=== PATIENT | male | born 1930 | race Caucasian/White ===

== ENCOUNTER 2017-02-06 06:18 | Emergency (ER) | payer MEDICARE, OTHER ==
[~2017-02-06 06:18] MED LIST: ATENOLOL100 MG PO; BENAZEPRIL HCL20 MG PO; BENAZEPRIL HCL40 MG PO; CATAPRES 0.2MG0.2 MG TOP; CLONIDINE 0.1M0.1 MG TOP; COLACE100 MG PO; FEOSOL325 MG PO; FOLIC ACID1 MG PO; GLIPIZIDE10 MG PO; GLUCOPHAGE500 MG PO; GLUCOTROL XL5 MG PO; HYDRALAZINE 10M10 MG PO; LASIX40 MG PO; LEVAQUIN500 MG PO; LEVOTHYROXINE175 MCG PO; LIPITOR40 MG PO; LOPRESSOR50 MG PO; MIRALAX17 GM PO; MYLICON80 MG PO; NITROGLYCERIN1 EAC1 TD; NORVASC10 MG PO; NORVASC5 MG PO; PATANOL5 ML OU; PREVACID30 M1 PO; PROTONIX40 MG PO; SIMVASTATIN20 MG PO; SYNTHROID PO; TYLENOL #31 EACH PO; ULTRAM50 MG PO
[2017-02-06 07:32] LABS: BASOPHIL 0.3 % (0-2); EOSINOPHIL 2.7 % (0-7); HCT 31.4 % (42.0-52.0); HGB 9.9 g/dl (13.2-18.0); LYMPHOCYTE 14.5 % (15-48); MCH 24.3 pg (25.0-31.0); MCHC 31.5 g/dL (32.0-36.0); MONOCYTE 7.3 % (0-12); MPV 10.5 fL (6.0-9.5); NEUTROPHIL 75.2 % (41-80); PLT 376 K/uL (150-400); RBC 4.08 M/uL (4.70-6.00); RDW 17.4 % (11.5-14.0); WBC 10.7 K/uL (4.0-10.5)
[2017-02-06 07:39] LABS: INR 1.07 (0.9-1.2); PROTHROMBIN TIME 13.5 SECONDS (11.7-14.0); PTT 27.9 SECONDS (23.2-31.4)
[2017-02-06 07:45] LABS: ALBUMIN 3.9 g/dL (3.4-4.8); BILIRUBIN - TOTAL 0.2 mg/dL (0.1-1.0); CREATININE 1.1 mg/dL (0.7-1.2); GLOBULIN (CALCULATION) 3.2 g/dL (2.2-4.2); POTASSIUM 3.6 mmol/L (3.5-5.1); TOTAL PROTEIN 7.1 g/dL (6.4-8.3)
[2017-02-06 10:30] LABS: BILIRUBIN NEGATIVE (NEGATIVE); BLOOD NEGATIVE Ery/uL (NEGATIVE); CLARITY CLEAR (CLEAR); COLOR YELLOW (YELLOW); GLUCOSE (U) NORMAL (NORMAL); KETONE (U) NEGATIVE (NEGATIVE); LEUKOCYTES NEGATIVE Leu/uL (NEGATIVE); NITRITE NEGATIVE (NEGATIVE); PROTEIN NEGATIVE (NEGATIVE); UROBILINOGEN 0.2 mg/dL (0.2-1.0); pH 5.5 (5.0-9.0)
[2017-02-06 13:50] LABS: FT4 (FREE T4) 1.21 ng/dL (0.93-1.70); TSH (THYROID STIM HORMONE) 2.43 uIU/mL (0.270-4.200)
== END 2017-02-06 11:28 | disposition home or self-care (01) ==
LOC: FER 06:18
PROVIDERS: Emergency Medicine Emergency Medical Services
DX: R53.1 Weakness (principal); R53.83 Other fatigue; R53.81 Other malaise; R42 Dizziness and giddiness; R11.0 Nausea; I10 Essential (primary) hypertension; I25.10 Atherosclerotic heart disease of native coronary artery without angina pectoris; E11.9 Type 2 diabetes mellitus without complications; E78.5 Hyperlipidemia, unspecified; K21.9 Gastro-esophageal reflux disease without esophagitis; E03.9 Hypothyroidism, unspecified; Z86.73 Personal history of transient ischemic attack (TIA), and cerebral infarction without residual deficits; Z88.0 Allergy status to penicillin; Z88.5 Allergy status to narcotic agent; Z79.84 Long term (current) use of oral hypoglycemic drugs; Z79.899 Other long term (current) drug therapy; Z95.5 Presence of coronary angioplasty implant and graft
CPT/HCPCS: 36415; 71010; 80053; 81003; 84439; 84443; 84484; 85025; 85610; 85730; 86850; 86900; 86901; 93005; 96372; J2930; J3420